=== PATIENT | male | born 1940 | race Caucasian/White ===

== ENCOUNTER 2018-02-10 11:02 | Emergency (ER) | payer MEDICARE, OTHER ==
[~2018-02-10] VITALS: Ht 179.1 cm; Wt 62.9 kg
[2018-02-10] MEDS ORDERED: CYCLOPENTOLATE 2% LEFTEYE ONE (12:00)
[2018-02-10] MEDS ORDERED: DIPH,PERTUSS(ACELL),TET VAC/PF 0.5 ML IM-VACC ONE ×2 (12:25→13:00)
[2018-02-10 13:47] VITALS: BP 129/57
== END 2018-02-10 13:56 | disposition home or self-care (01) ==
LOC: ED 13:50
DX: H54.62 Unqualified visual loss, left eye, normal vision right eye (principal); E11.9 Type 2 diabetes mellitus without complications
CPT/HCPCS: 70551; 90471; 90715; 99284